=== PATIENT | female | born 1935 | race Caucasian/White ===

== ENCOUNTER 2017-07-04 08:00 | Observation (INO) ==
--- NOTE | 2017-07-04 07:52 | Cardiology History & Physical ---
History of Present Illness Chief complaint: palpitations HPI: Gail is a 82 year old female who is known to our practice with a history of palpitations, PAF, HTN and aortic dilation who has been having increasing palpitations and a hard time sleeping due to this. Recent Holter showed SR, SB, ST, HR 44-136, occasional PACs, runs of PAT, likely A Fib, rare PVCs. She was started on Pradaxa 150mg BID for anticoagulation for stroke prevention. She is being admitted to observation today for initiation of antiarrhythmic therapy on Flecainide. Review of Systems - Constitutional Constitutional: Present: fatigue. Absent: chills, fever(s) - EENMT Eyes: Absent: change in vision Balance: Absent: vertigo Mouth/Throat: Absent: sore throat - Cardiovascular Cardiovascular: Present: palpitations. Absent: chest pain, syncope, dyspnea on exertion, orthopnea Rhythm: Present: abnormal rhythm Vascular: Absent: pedal edema - Respiratory Respiratory: Absent: cough, dyspnea, dyspnea on exertion - Gastrointestinal Gastrointestinal: Absent: abdominal pain, constipation, diarrhea, nausea, vomiting - Genitourinary Genitourinary: Absent: dysuria - Integumentary/Breasts Integumentary: Absent: rash - Neurological Neurological: Absent: dizziness - Endocrine Endocrine: Present: palpitations PFSH Patient Stated Medical History Cardiac Arrhythmia Yes Hypertension Yes Gastroesophageal Reflux Yes Disease Other Yes: cysts in kidneys- Osteoarthritis Yes Surgical History: Cholecystectomy. LO, BSO. Bx Bilateral breast. Tonsillectomy Family History: Father - CAD, CABG X3 Maternal grandmother - IA, cause of Paternal aunt - CAD, CABG Paternal grandfather - CHF Paternal uncle - A Fib - Social History Smoking status: Never smoker Substance use type: does not use Alcohol intake frequency: does not drink Household members: none Current occupational status: retired Current residence: Apartment/Private Home Medications Home Medications Medication Instructions Recorded Confirmed Type Omeprazole Magnesium [Prilosec Otc] 20 mg PO PRN PRN #0 11/16/15 07/04/17 History Acebutolol [Sectral] 200 mg PO NOON 06/29/17 07/04/17 History Dabigatran [Pradaxa] 150 mg PO BID 06/29/17 07/04/17 History DiltiaZEM IR [Cardizem Ir] 30 mg PO BID 06/29/17 07/04/17 History Elderberry Juice 1 tsp PO DAILY 06/29/17 07/04/17 History Multivitamin [One Daily] 1 each PO DAILY 06/29/17 07/04/17 History Losartan/Hydrochlorothiazide 0.5 tab PO DAILY 07/04/17 07/04/17 History [Hyzaar 50-12.5 Tablet] Allergies Allergy/AdvReac Type Severity Reaction Status Date / Time Sulfa (Sulfonamide Allergy Intermediate HIVES Verified 07/04/17 08:56 Antibiotics) alendronate sodium Allergy Mild EPIGASTRIC Verified 07/04/17 08:56 PAIN amoxicillin Allergy Mild DIARRHEA Verified 07/04/17 08:56 celecoxib Allergy Mild DIARRHEA Verified 07/04/17 08:56 levofloxacin Allergy Mild DIARRHEA Verified 07/04/17 08:56 risedronate sodium Allergy Mild Verified 07/04/17 08:56 Exam - Constitutional no acute distress, well nourished, cooperative - Routine HEENT Exam Head: Present: normocephalic ENT: Present: mucous membranes moist - Routine Neck Exam Absent: JVD, carotid bruit - Routine Chest/Breast/Axilla Exam Chest wall: Absent: tenderness - Routine Respiratory Exam Present: CTA bilaterally. Absent: rales, wheezes - Routine Cardiovascular Exam Present: RRR, no murmur - Routine Abdominal Exam Present: soft, normoactive bowel sounds - Routine Extremities Exam Present: no edema - Routine Skin Exam Present: intact, dry, warm - Routine Neurological Exam Present: alert, oriented X3 - Routine Psychiatric Exam Present: normal affect, normal thought process Results 07/04/17 08:42 07/05/17 04:12 Laboratory Results - last 24 hr 07/04/17 07/04/17 08:42 08:42 WBC 4.0 L RBC 4.18 Hgb 12.8 Hct 38.8 MCV 92.8 MCH 30.6 MCHC 33.0 RDW Std Deviation 45.0 Plt Count 184 MPV 9.3 L Immature Gran % (Auto) 0.0 Neut % (Auto) 43.5 Lymph % (Auto) 43.4 [place] % (Auto) 9.3 H Eos % (Auto) 2.5 Baso % (Auto) 1.3 Neut # (Auto) 1.7 L Lymph # (Auto) 1.7 [place] # (Auto) 0.4 Eos # (Auto) 0.1 Baso # (Auto) 0.1 Abs Immat Gran (auto) 0.00 Turbidity < 20 Sodium 144 Potassium 3.7 Chloride 106 Carbon Dioxide 29 Anion Gap 9 BUN 18.0 H Creatinine 1.0 GFR Calculation 53 BUN/Creatinine Ratio 18 Glucose 91 Calculated Osmolality 279 Calcium 9.5 Magnesium 1.8 Total Bilirubin 0.70 Icterus Index < 2 AST 25 ALT 21 Alkaline Phosphatase 55 Total Protein 6.9 Albumin 4.0 Globulin 2.9 Albumin/Globulin Ratio 1.4 TSH 1.64 Specimen Hemolysis < 15 EKG interpretations - EKG EKG results cardiology: sinus rhythm - Dysrhythmias Supraventricular dysrhythmia: atrial premature complexes Hospital Course This is a general summary of the patient's hospital course. For more details refer to the complete medical record. Time spent with patient: 25 - 35 minutes DVT Prophylaxis: Pradaxa Assessment and Plan - Attestation Attestation Narrative: 07/06/17 13:10 Recommendation After examining the patient I agree with the above assessment. I am involved in the formulation of the patient's plan of care. - Assessment and Plan (1) Palpitations Status: Acute She has been having increasing palpitations and a hard time sleeping due to this. - Recent Holter showed SR, SB, ST, HR 44-136, occasional PACs, runs of PAT, likely A Fib, rare PVCs. - She is being admitted to observation today for initiation of antiarrhythmic therapy on Flecainide. - Check Mag and TSH - EKG on admit and in am (2) Paroxysmal atrial fibrillation Status: Chronic Recent Holter showed SR, SB, ST, HR 44-136, occasional PACs, runs of PAT, likely A Fib, rare PVCs. - She was started on Pradaxa 150mg BID for anticoagulation for stroke prevention. - She is being admitted to observation today for initiation of antiarrhythmic therapy on Flecainide. (3) Essential (primary) hypertension Status: Chronic Continue Acebutalol 200mg daily, Diltiazem 30mg daily and Losartan/ HCTZ daily (4) Aortic dilatation Status: Chronic routine monitoring - Assessment and Plan Palpitations: She has been having increasing palpitations and a hard time sleeping due to this. - Recent Holter showed SR, SB, ST, HR 44-136, occasional PACs, runs of PAT, likely A Fib, rare PVCs. - She is being admitted to observation today for initiation of antiarrhythmic therapy on Flecainide. - Check Mag and TSH - EKG on admit and in am A Fib:Recent Holter showed SR, SB, ST, HR 44-136, occasional PACs, runs of PAT, likely A Fib, rare PVCs. - She was started on Pradaxa 150mg BID for anticoagulation for stroke prevention. - She is being admitted to observation today for initiation of antiarrhythmic therapy on Flecainide. HTN: Continue Acebutalol 200mg daily, Diltiazem 30mg daily and Losartan/ HCTZ daily.
--- OUTSIDE RECORDS SUMMARY | 2017-07-04 08:26 | External Medical Summary ---
:1935 Author Organization [employer] Care Team Providers Name Role Phone Damian Tavarez Provider Role Unavailable Allergies No Known Allergies Problems Problem Type Condition Code Onset Dates Condition Status Assessment Encounter for dental examination and Z01.20 Active cleaning without abnormal findings Medications No Known Medications Procedures Procedure Coding System Code Date INTRAORL - CMPL SERIES CODE 08828 CPT-4 D0210 Jun 05, 2016 COMP ORAL EVALUATION - NEW/EST PT CPT-4 D0150 Jun 05, 2016 Results No Known Results Summary Purpose [employer] Submission
[2017-07-04 08:40] VITALS: BMI 23.8
[2017-07-04] MEDS ORDERED: SALINE FLUSH 10ml SYRINGE IV PRN (10:03)
[2017-07-04] MEDS ORDERED: FLECAINIDE 100 MG TABLET PO ONE (10:45)
[2017-07-04] MEDS ORDERED: PRILOSEC OTC 20 MG PO PRN (10:54)
[2017-07-04] MEDS ORDERED: ACEBUTOLOL 200 MG PO SCH (12:00)
[2017-07-04] MEDS ORDERED: PNEUMOCOCCAL VAC ADMIN CHARGE INJ ONE (14:03)
[2017-07-04] MEDS ORDERED: PNEUMOCOCCAL 13 VACCINE 0.5ml INJECTION IM ONE (15:00)
[2017-07-04] MEDS: FLECAINIDE 50 MG TABLET PO SCH (21:28)
[2017-07-04] MEDS: DILTIAZEM IR PO SCH (21:29)
[2017-07-04] MEDS: DABIGATRAN 150 MG PO SCH (21:29)
[2017-07-05 00:18] VITALS: RESP 16
[2017-07-05 07:48] VITALS: BP 122/66; TEMP 97.8; O2SAT 99
[2017-07-05 08:05] VITALS: PULSE 58
[2017-07-05] MEDS ORDERED: MULTI-VITAMIN PLAIN TABLET PO SCH (09:00)
[2017-07-05] MEDS ORDERED: LOSARTAN/HCTZ 100/12.5mg TABLET PO SCH (09:00)
[2017-07-05] MEDS ORDERED: ELDERBERRY JUICE PO SCH (09:00)
[2017-07-05] MEDS ORDERED: HCTZ PO SCH (09:00)
[2017-07-05] MEDS ORDERED: LOSARTAN PO SCH (09:00)
[2017-07-05] MEDS: DABIGATRAN 150 MG PO SCH (09:52)
[2017-07-05] MEDS: DILTIAZEM IR PO SCH (09:54)
[2017-07-05] MEDS: FLECAINIDE 50 MG TABLET PO SCH (09:55)
== END 2017-07-05 10:37 | disposition home or self-care (01) ==
LOC: SRG
PROVIDERS: ADMIT Internal Medicine Cardiovascular Disease; ATTEND Internal Medicine Cardiovascular Disease